=== PATIENT | male | born 2000 | race Caucasian/White ===

== ENCOUNTER 2023-04-10 19:20 | Emergency (ER) | payer OTHER, SELFPAY ==
[2023-04-10 19:21] VITALS: BP 126/72; PULSE 98; RESP 16; TEMP 37.6; O2SAT 100; BMI 28.8
--- NOTE | 2023-04-10 20:00 | RAD_ITS ---
INDICATION: Trauma, water skiing injury with shoulder pain and injury EXAMINATION/TECHNIQUE: X-RAY - RIGHT XR Shoulder Min 2 Views 4 VIEWS COMPARISON: None. FINDINGS: SOFT TISSUES: No soft tissue swelling or gas. No radiopaque foreign body. BONES/JOINTS: No acute fracture. Joint spaces anatomically aligned. RAD/Shoulder min 2 Views IMPRESSION: No acute bony injury. Electronically Signed: Saúl Che MD at 20:22 EDT ,
[2023-04-10] MEDS: HYDROcodone Bitartrate/Apap 5/325 Tablet PO (20:52)
--- NOTE | 2023-04-10 20:55 | RAD_ITS ---
INDICATION: Trauma, elbow injury with pain EXAMINATION/TECHNIQUE: X-RAY - RIGHT XR Elbow Min 3 Views 3 VIEWS COMPARISON: None. FINDINGS: SOFT TISSUES: No soft tissue swelling or gas. No radiopaque foreign body. BONES/JOINTS: No acute fracture. Joint spaces anatomically aligned. RAD/Elbow min 3 Views IMPRESSION: No acute bony injury. Electronically Signed: Saúl Che MD at 21:33 EDT ,
--- NOTE | 2023-04-10 22:10 | EX.ED.UPPERE ---
HPI History of Present Illness HPI Narrative: Patient presents with right shoulder and elbow pain that began today. Patient states he fell while waterskiing. Patient states he felt something pull in his shoulder and elbow. Patient describes his pain as sharp. Patient states it is worse with movement and better with rest. Patient denies any paresthesias or weakness. Patient denies any head injury or loss of consciousness. Patient denies any other injuries. Patient denies any neck pain. Chief Complaint: Upper Extremity Injury Informant: patient Occured/Mechanism Mechanism/Context: Yes fall Onset/Context/Timing Onset: Today Context: Sudden Onset Timing: Continuous Quality of Pain: Sharp Location: Right shoulder and right elbow Worsened by: Movement Relieved by: Rest Associated Symptoms Associated Symptoms: Positive for Parasthesia PFSH PFSH Medical History no medical history no medical history Home Medications NK 04/10/23 [History Last Taken Unknown] Allergy/AdvReac Type Severity Reaction Status Date / Time No Known Allergies Allergy Verified 04/10/23 19:21 Surgical History no surgical history no surgical history Social History Smoking Status: Never smoker ROS ROS ED Constitutional Constitutional ED: Denies chills or fever(s) Eyes Eyes: Denies blurry vision or change in vision ENT ENT ED: Denies rhinorrhea or sore throat Cardiovascular Cardiovascular: Denies chest pain or palpitations Respiratory/Chest Respiratory/Chest: Denies cough or dyspnea Gastrointestinal Gastrointestinal: Denies nausea or vomiting Genitourinary Genitourinary ED: Denies dysuria or hematuria Musculoskeletal Musculoskeletal: Reports back pain; Denies neck pain Integumentary Denies abscess or rash Neurologic Neurologic: Denies headache(s) or weakness Allergic/Immunologic Allergic/Immunologic ED: Denies mouth swelling or urticaria EXAM Physical Exam Const Vital Signs: 04/10/23 19:21 Temperature 99.7 F H Temperature Source Temporal Pulse Rate 98 Respiratory Rate 16 Blood Pressure 126/72 H Blood Pressure Mean 90 Pulse Ox 100 Oxygen Delivery Method Room Air Positive well nourished and well developed General Appearance ED: well developed and NAD HEENT Reports moist mucous membranes Neck full ROM and supple Extremity Extremity Narrative: There is tenderness over the right shoulder and right elbow. There is no deformity appreciated. Range of motion was limited in all motions of the right shoulder and right elbow secondary to pain. There is mild edema but there is no ecchymosis. Radial pulses are equal bilaterally. Sensation was intact to light touch in the radial, median, ulnar, and axillary areas. Capillary refill was less than 2 seconds in all digits. Strength is 5/5 in the radial, median, and ulnar areas. Neuro oriented x3, CN's II-XII intact bilaterally, moves all extremities, no focal motor deficits and no sensory deficits noted Sensorium / Orientation: alert Motor Exam: strength 5/5 throughout Psych mental status grossly normal MDM MDM MDM Narrative Medical decision making narrative: Differential diagnosis includes shoulder strain, elbow strain, occult fracture, shoulder dislocation, and clavicle fracture. X-rays of the right shoulder will be obtained to assess for fracture and dislocation. X-rays of the right elbow will be obtained to assess for occult fracture. Radiography Diagnostic Testing: Clinical Impression(s) from Imaging Studies Shoulder X-Ray 04/10/23 20:00 IMPRESSION: No acute bony injury. Electronically Signed: Saúl Che MD at 20:22 EDT , Elbow X-Ray 04/10/23 20:55 IMPRESSION: No acute bony injury. Electronically Signed: Saúl Che MD at 21:33 EDT , X-rays of the right shoulder were obtained. There are 4 views. On my independent interpretation, there is no acute fracture. There is no dislocation. There is no soft tissue swelling. Radiologist also interpreted the x-rays and agrees. X-rays of the right elbow were obtained. There are 3 views. On my independent interpretation, there is no acute fracture. There is no dislocation. There is no soft tissue swelling. Radiologist also interpreted the x-rays and agrees. Treatment and Re-Evaluation Narrative: Patient was given a dose of [place] here. Patient was advised of his findings. Patient was advised that this is most likely a soft tissue injury. Patient was instructed to use ice to the area. Patient was given a prescription for short course of [place]. Patient was instructed use ibuprofen in addition to this. Patient was instructed to follow-up with his primary care physician in 5 to 7 days. Patient understood and was agreeable with the plan. All questions were answered. Discharge Plan Triage Chief Complaint: Upper Extremity Injury ED Provider: Juvenal Kent Dx/Rx/DC Orders Clinical Impression: Muscle strain of right shoulder region, Sprain of elbow, right Instructions: ED Sprain, Elbow, ED Shoulder Sprain Prescriptions: No Action NK Primary Care Provider: Care Physician,No Primary Referrals: Adria Chavis DO [Med Staff - Active Staff] - 5-7 Days Fletcher Forrester MD [Med Staff - Mental Health Program Director] - 5-7 Days Care Physician,No Primary [Primary Care Provider] - Disposition Disposition: Home, Self Care
== END 2023-04-10 22:38 | disposition home or self-care (01) ==
PROVIDERS: Emergency Provider Emergency Medicine; Visit Provider Emergency Medicine
DX: S46.911A Strain of unspecified muscle, fascia and tendon at shoulder and upper arm level, right arm, initial encounter (principal); S53.401A Unspecified sprain of right elbow, initial encounter; Y93.17 Activity, water skiing and wake boarding
CPT/HCPCS: 73030; 73080; 99282